=== PATIENT | male | born 1945 | race Caucasian/White ===

== ENCOUNTER 2019-08-17 20:07 | Observation (INO) | payer MEDICARE ==
[2019-08-17] MEDS ORDERED: cefTRIAXone\\ROCEPHIN 2 GM VIAL ONE (21:24)
[2019-08-17] MEDS ORDERED: Morphine 4 MG/ML VIAL ONE (21:24)
[2019-08-17 22:07] LABS: ALT (SGPT) 20 U/L (8-55); AST (SGOT) 20 U/L (5-34); Albumin 2.8 g/dL (3.4-4.8); Alkaline Phosphatase 239 U/L (40-110); Anion Gap 11 mmol/L (10-20); BUN (Urea Nitrogen) 18 mg/dL (8.4-25.7); Bilirubin, Total 0.7 mg/dL (0.2-1.2); Calc. Creatinine Clearance 0 mL/min (70-130); Calcium 8.4 mg/dL (7.8-10.44); Carbon Dioxide 19 mmol/L (23-31); Chloride 100 mmol/L (98-107); Estimated GFR-MDRD 86; Globulin 2.6 g/dL (2.4-3.5); Glucose 123 mg/dL (83-110); Potassium 3.9 mmol/L (3.5-5.1); Protein, Total 5.4 g/dL (5.8-8.1); Sodium 126 mmol/L (136-145)
--- NOTE | 2019-08-17 23:13 | CT ---
CT HEAD WITHOUT IV CONTRAST COMPARISON: None HISTORY: Altered mental status/stroke. Generalized weakness and hyponatremia. TECHNIQUE: Axial CT imaging at 5 mm intervals from vertex through skull base without contrast FINDINGS: A low-density area seen in the region of the pontomedullary junction. This is probably related to vol ume averaging, but infarction in this region cannot be excluded based on provided images. There is mild diminished attenuation in the periventricular white matter which is nonspecific but likely refle ctive of mild chronic small vessel ischemic changes. Small focal area of encephalomalacia is seen within the left anterior frontal lobe likely due to prior infarction. There is no evidence of an acut e infarction, hemorrhage, mass effect, or midline shift. Mild cerebral volume loss is present. The ventricular system is normal in size, shape, and position for the degree of sulcal atrophy. Visualized paranasal sinuses are clear. Osseous structures appear intact.There is atrophic right globe with associated calcification. IMPRESSION: 1. Low density area at the pontomedullary junction which could be artifactual. However, infarction ca nnot be entirely excluded based on this exam. Correlation with patient's neurological examination is recommended. Depending on clinical concern, follow-up CT head versus MRI brain is recommended. 2. Chronic findings as described above. 3. Above findings discussed Dr. Jackson in the emergency department on 08/17/2019 at 2310 hours
--- NOTE | 2019-08-18 01:23 | HP ---
PRIMARY CARE PHYSICIAN: Dr. Saucedo. CHIEF COMPLAINT: Generalized weakness. HISTORY OF PRESENT ILLNESS: Mr. Chong is a very pleasant 74-year-old gentleman, who has a history of systemic lupus and lupus arthritis. He says that over the past 2 to 3 weeks, he has been having progressively worse pain in his right shoulder. It got to the point where he could barely do anything with it. He made an appointment to see his primary care physician, Dr. Saucedo and over the week end before he could see Dr. Saucedo, he became weak and disoriented off and on according to the and he fell on Saturday and hit his elbow on the bathroom sink. She was able to break his fall, so that he did not hit with complete force. He has also noted a decrease in his appetite. He says nothing really tastes good. He has some cough and congestion, but no nausea, vomiting. No diarrhea. If anything, he has been a bit constipated. When he went in to see Dr. Saucedo, he suggested that he come in to the hospital for evaluation. He was treated initially at the [place] [facility], found to be hyponatremic and then sent here for further evaluation. REVIEW OF SYSTEMS: All systems were reviewed and are negative except for that mentioned in the history of present illness. 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 He has had this for 25 years. 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 ALLERGIES: TO SULFA. SOCIAL HISTORY: He is . He denies any alcohol use. He is a former smoker. He quit 35 years ago. He would like to be a full code. FAMILY HISTORY: Significant for arthritis. CURRENT MEDICATIONS: Include: 1. Mirtazapine 30 mg daily. 2. Methotrexate 20 mg weekly. 3. Folic acid 5 mg daily. 4. Dapsone 100 mg daily. 5. Rifampin 300 mg once a month. 6. Minocin 100 mg daily. 7. Tramadol 50 mg daily. PHYSICAL EXAMINATION: GENERAL: He is alert and oriented. He appears to be in no acute distress. He is well developed and well nourished, but chronically ill in appearance. VITAL SIGNS: Blood pressure was 121/60, heart rate 94, respiratory rate of 26, temperature is 99.5. HEENT: His pupils are reactive. He is missing the eye on the right. Throat, he has dry mucous membranes, some mild erythema. Poor dentition. NECK: There is no adenopathy. No bruits. LUNGS: Clear to auscultation. There is no wheezing, no rales, no rhonchi. CARDIOVASCULAR: He has a normal S1, S2. No S3 or S4. No murmurs, clicks, or rubs. ABDOMEN: Soft, nontender, and nondistended. Positive for bowel sounds. No rebound. No guarding. No organomegaly. EXTREMITIES: No calf tenderness. He does have some prepatellar swelling in the right knee, but there is no warmth. No erythema. His cranial nerves are intact. It is very difficult to assess his strength on the right side. He has good surgical aide strength in the right hand. However, he either is unable to or has decreased ability to lift his right arm against gravity. I do suspect this is somewhat due to pain in the shoulder. The shoulder has decreased movement in all planes, decreased abduction as well as adduction. On the right lower extremity, he was able to lift the leg against resistance, but with much coaxing on the skin and integument he has some hyperpigmentation of his skin as well as some purplish to grayish discoloration as well on the upper and lower extremities around the shoulders. LABORATORY DATA: His sodium was 126, potassium 3.9, chloride is 100, CO2 is 19, BUN of 18, creatinine 0.87, glucose is 123. Alkaline phosphatase was 239. He had a CBC, the white blood cell count was 9.6, hemoglobin 8.7, hematocrit is 28.1, and platelet count was 296. On his urinalysis, he had a positive nitrite, some rare bacteria. ASSESSMENT: This is a pleasant 74-year-old gentleman, who presents with generalized weakness and hyponatremia. He also has had frequent falls. He also notes difficulty in utilization of the right upper extremity. It is unclear whether or not this represents severe arthritis related to systemic lupus as evidenced by his x-ray. He may also have a rotator cuff tear, making it difficult to abduct the arm or it could be a stroke, which appears to be less likely. He is going to be admitted. PLAN: 1. He will be admitted. We will obtain an MRI of the brain as well as an MRI of the shoulder to help evaluate the right upper extremity weakness. 2. Hyponatremia. I suspect this is due to poor oral intake and volume depletion. We will continue IV hydration and recheck his level in the a.m. If his sodium is not correcting as expected then, a urine and serum osmolality can be obtained. 3. Systemic lupus. This appears to be clinically stable. 4. Urinary tract infection. We will continue Rocephin and follow up on the urine culture results. 5. We will also get PT and OT eval. Job ID: [id number]
[2019-08-18] MEDS ORDERED: hydrALAZINE 20 MG/ML VIAL SLOW IVP PRN (02:42)
[2019-08-18 03:56] LABS: Bilirubin Small (Negative); Blood, Urine Negative (Negative); Glucose, Urine (Dipstick) Negative (Negative); Leukocyte Negative (Negative); Nitrite Negative (Negative); Protein, Urine (Dipstick) 100 mg/dL (Neg-Trace)
[2019-08-18 04:00] LABS: Clarity Clear (Clear)
[2019-08-18 04:12] LABS: Bacteria/HPF None Seen HPF (None Seen); RBC/HPF 0-3 HPF (0-3); Squamous Epithelial 0-3 HPF (0-3); WBC/HPF 0-3 HPF (0-3)
[2019-08-18 04:16] LABS: Anion Gap 11 mmol/L (10-20); BUN (Urea Nitrogen) 16 mg/dL (8.4-25.7); Calc. Creatinine Clearance 0 mL/min (70-130); Carbon Dioxide 19 mmol/L (23-31); Chloride 101 mmol/L (98-107); Estimated GFR-MDRD Greater than 90; Glucose 118 mg/dL (83-110); Potassium 3.8 mmol/L (3.5-5.1); Sodium 127 mmol/L (136-145)
[2019-08-18] MEDS: Sodium Chloride 0.9% 1,000 ML IV SCH ×2 (04:50→16:31)
[2019-08-18 05:10] LABS: Band 4 % (5-11); Eosinophils 2 % (0-10); Hemoglobin 7.8 g/dL (14.0-18.0); Lymphocytes 2 % (21-51); MDiff Complete? YES; Mean Corpuscular HGB CONC 32.7 g/dL (32.0-36.0); Mean Corpuscular Hemoglobin 31.5 pg (27.0-31.0); Mean Corpuscular Volume 96.4 fL (78.0-98.0); Mean Platelet Volume 6.8 fL (7.4-10.4); Monocytes 14 % (0-10); Neutrophil 78 % (42-75); Platelet Count 280 thou/uL (130-400); RBC Distribution Width 16.2 % (11.5-14.5); Red Blood Cell (RBC) Count 2.48 mill/uL (4.70-6.10)
[2019-08-18] MEDS ORDERED: Enoxaparin Sodium 40 MG/0.4 ML SYRINGE ONE (09:21)
[2019-08-18] MEDS: Enoxaparin Sodium 40 MG/0.4 ML SYRINGE SC SCH (09:35)
--- NOTE | 2019-08-18 14:40 | MRI ---
EXAM: Right shoulder MRI without contrast: HISTORY: Right upper extremity weakness pain history of injury from a fall COMPARISON: None FINDINGS: Multiplanar, multisequence MRI examination of the shoulder is performed. A C joint:Very markedly severe A/C joint arthrosis with prominent downsloping of the anterior acromiu m as well as undersurface spurring of the lateral clavicle with some fluid and fat stranding in the subacromial and subdeltoid bursa. Supraspinatus tendon: Somewhat thinned supraspinatus tendon with minimal interstitial tearing and ten dinopathy. Infraspinatus tendon: Partial-thickness undersurface and minimal interstitial tearing and tendinopath y. Biceps tendon: Severe tendinopathy in the upper bicipital groove and intra-articularly with some inte rstitial tearing. Subscapularis tendon: Tendinopathy with interstitial tearing. Rotator cuff muscles: Rotator cuff muscles demonstrate some heterogeneous diffuse edematous changes w ith mild diffuse muscle volume loss. This could potentially represent some type of nonspecific denervation. Very markedly severe arthrosis changes of the glenohumeral joint with severe cartilage loss and exten sive subchondral cystic changes of the humeral head and glenoid with severe flattening and overall deformity. Severe humeral and glenoid hypertrophic osteophytosis. Glenoid labrum: Very severely blunted degenerated appearing labrum. No evidence for acute osteochondral defect or significant abnormal marrow signal. IMPRESSION: Very markedly severe glenohumeral joint arthropathy with marked cartilage loss and extensive subchond ral changes. Evidence for rotator cuff tendinopathy with some partial thickness and interstitial tearing. Rotator cuff muscle signal shows heterogeneous T2 hyperintensity evidence for some edematous changes, nonspecific, possibly related to nonspecific denervation. Severe A/C joint arthrosis. Other findings as above.
--- NOTE | 2019-08-18 14:46 | MRI ---
BRAIN MRI WITHOUT CONTRAST: 08/18/19 COMPARISON: None. HISTORY: Right upper extremity weakness, generalized weakness with hyponatremia, dehydration, and recent fall. TECHNIQUE: Multiplanar and multisequence MR imaging of the brain is obtained without contrast. FINDINGS: The diffusion weighted imaging demonstrates no evidence for acute infarction. The axial gradient echo imaging demonstrates no evidence for intracranial hemorrhage. The globe on th e right is shrunken and deformed suggesting a history of remote right sided ocular trauma. The regional bone marrow signal intensity appears grossly unremarkable. There is degenerative change involving the atlantoaxial interspace. There are numerous scattered foci of increased T2 and FLAIR si gnal within the periventricular, deep, and subcortical white matter, evidence of small vessel disease . There is mild cerebral volume loss. IMPRESSION: Small vessel disease. No MR evidence of intracranial hemorrhage, or acute infarction. POS: BEE
[2019-08-18] MEDS: Acetaminophen 325 MG TAB PO PRN (16:31)
[2019-08-18 16:55] VITALS: BMI 24.3
[2019-08-18] MEDS: Minocycline HCl 50 MG CAP PO SCH (20:48)
[2019-08-18] MEDS: Cyclobenzaprine 10 MG TAB PO SCH (20:48)
[2019-08-18] MEDS: Hydroxychloroquine Sulfate 200 MG TAB PO SCH (20:49)
[2019-08-18] MEDS ORDERED: Methotrexate Sodium 2.5 MG TAB PO SCH (21:00)
[2019-08-18] MEDS ORDERED: cefTRIAXone\\ROCEPHIN 1 GM in Sodium Chloride 0.9% 100 ML IVPB SCH (21:00)
--- NOTE | 2019-08-18 21:40 | PDOC.HOSPP ---
- Subjective Encounter Date: 08/18/19 Encounter Time: 16:00 Subjective: no overnight events. This morning, complains of weakness but mostly of right shoulder pain and limited movement due to pain. - Objective Vital Signs & Weight: Vital Signs (12 hours) Temp Pulse Pulse Pulse Resp BP BP 08/18/19 19:07 98.2 F 89 18 08/18/19 15:40 85 85 124/70 122/65 08/18/19 14:55 100.4 F H 87 16 BP Pulse Ox 08/18/19 19:07 108/67 99 08/18/19 15:40 08/18/19 14:55 111/69 97 Weight Weight 179 lb 7.3 oz I&O: 08/17/19 08/18/19 08/19/19 06:59 06:59 06:59 Intake Total 999 Output Total 200 Balance 799 Result Diagrams: 08/18/19 03:36 08/18/19 03:36 Hospitalist ROS - Review of Systems Constitutional: denies: fever, chills, sweats, weakness, malaise, other Respiratory: denies: cough, dry, shortness of breath, hemoptysis, SOB with excertion, pleuritic pain, sputum, wheezing, other Cardiovascular: denies: chest pain, palpitations, orthopnea, paroxysmal noc. dyspnea, edema, light headedness, other Genitourinary: denies: dysuria, frequency, incontinence, hematuria, retention, other Musculoskeletal: reports: shoulder pain Skin: reports: bruising Neurological: reports: weakness, incoordination - Medication Medications: Active Medications Generic Name Dose Route Start Last Admin Trade Name Elíasq PRN Reason Stop Dose Admin Acetaminophen 650 mg 08/18/19 02:42 08/18/19 16:31 Tylenol PO 650 mg Q4H PRN Administration Headache/Fever/Mild Pain (1-3) Cyclobenzaprine HCl 10 mg 08/18/19 21:00 08/18/19 20:48 Flexeril PO 10 mg TID HENRY Administration Dapsone 100 mg 08/18/19 21:00 08/18/19 20:49 Dapsone PO 100 mg HS HENRY Administration Enoxaparin Sodium 40 mg 08/18/19 09:00 08/18/19 09:35 Lovenox SC 40 mg 0900 HENRY Administration Hydroxychloroquine Sulfate 200 mg 08/18/19 21:00 08/18/19 20:49 Plaquenil PO 200 mg BID HENRY Administration Sodium Chloride 1,000 mls @ 75 mls/hr 08/18/19 03:00 08/18/19 16:31 Normal Saline 0.9% IV 1,000 mls .[id number] HENRY Administration Minocycline HCl 100 mg 08/18/19 21:00 08/18/19 20:48 Minocycline Hcl PO 100 mg HS HENRY Administration - Exam General Appearance: NAD, awake alert ENT: normocephalic atraumatic Neck: no JVD Heart: RRR, no murmur, no gallops, no rubs Respiratory: CTAB, no wheezes, no rales, no ronchi Gastrointestinal: soft, non-tender, non-distended, normal bowel sounds Extremities: no edema Extremities - other findings: right shoulder adducted, passive movement limited by severe pain Psychiatric: normal affect, normal behavior, A&O x 3 Hosp A/P - Plan -Left shoulder pain likely worsening osteoarthritis exacerbated by recent fall #weakness -MRI brain showing now acute infarct -likely result of radiculopathy and deconditioning #chronic hyponatremia -endorses reduced oral intake for the past year or so, worse in past two weeks -will provide IVF -may also be reset osmostat #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
[2019-08-18] MEDS ORDERED: traMADol HCl 50 MG TAB PO PRN (21:45)
[2019-08-19] MEDS: Sodium Chloride 0.9% 1,000 ML IV SCH (05:58)
[2019-08-19 06:53] LABS: Anion Gap 10 mmol/L (10-20); BUN (Urea Nitrogen) 10 mg/dL (8.4-25.7); Calc. Creatinine Clearance 102 mL/min (70-130); Calcium 7.8 mg/dL (7.8-10.44); Carbon Dioxide 17 mmol/L (23-31); Chloride 102 mmol/L (98-107); Estimated GFR-MDRD Greater than 90; Glucose 108 mg/dL (83-110); Potassium 3.9 mmol/L (3.5-5.1); Sodium 125 mmol/L (136-145)
[2019-08-19] MEDS: Cyclobenzaprine 10 MG TAB PO SCH ×3 (08:46→20:49)
[2019-08-19] MEDS: Enoxaparin Sodium 40 MG/0.4 ML SYRINGE SC SCH (08:47)
[2019-08-19] MEDS: Mirtazapine 30 MG TAB PO SCH (08:47)
[2019-08-19] MEDS: Folic Acid 1 MG TAB PO SCH (08:48)
[2019-08-19] MEDS: Hydroxychloroquine Sulfate 200 MG TAB PO SCH ×2 (08:48→20:49)
[2019-08-19 10:50] LABS: Sodium 128 mmol/L (136-145)
[2019-08-19] MEDS: Acetaminophen 325 MG TAB PO PRN ×2 (13:16→20:56)
--- NOTE | 2019-08-19 14:11 | CON ---
DATE OF CONSULTATION: 08/19/2019 This is Audrey Henry PA-C dictating a report for Carlos Oliveira MD. REQUESTING PHYSICIAN: [facility]. CONSULTING PHYSICIAN: Carlos Oliveira MD HISTORY OF PRESENT ILLNESS: This is a pleasant 74-year-old gentleman with a history of lupus. He reports that over the last 2 to 3 weeks he has been having progressively worse pain in his right shoulder, but before he could get to a doctor, he started having some weakness and disorientation. He did fall at home, but was caught by his . He then presented to his primary care doctor and was referred to our emergency department. He has been admitted now for hyponatremia. Currently at bedside, the patient reports that his biggest complaint is his right shoulder pain. He is also very weak. Family reports that the workup for stroke was negative. The patient does state that he attends aquatic therapy twice a week and started using some underwater weights approximately 2 weeks ago. He believes this is when his shoulder started bothering him. The patient does state he has been seen for the shoulder in the past, but it was many years ago by Dr. Otto. He denies any recent fevers, chills, or infection. He is right-hand dominant. He is a former rancher. PAST MEDICAL HISTORY: Significant for leprosy and lupus. PAST SURGICAL HISTORY: Includes a finger amputation secondary to a bone infection, eye surgery. ALLERGIES: INCLUDE SULFA. SOCIAL HISTORY: He is . He is a former smoker that quit 35 years ago. He denies any alcohol use. He is retired and lives at home with his . FAMILY HISTORY: Reviewed and noncontributory. REVIEW OF SYSTEMS: Ten-point review of systems conducted and otherwise negative except for stated above. OBJECTIVE: VITAL SIGNS: Temperature 98.4, pulse of 85, respiratory rate of 16, O2 saturation of 97% on room air, and blood pressure of 127/66. GENERAL: The patient is awake and alert. He is sitting up in bed, conversing with family and friends at bedside. He is in no apparent distress. He answers all questions appropriately. HEENT: Head is normocephalic and atraumatic. Eyes, the right eye is absent. NECK: Supple. Trachea midline. Breathing nonlabored. EXTREMITIES: The right upper extremity was evaluated. The patient is unable to lift his arm whatsoever off the bed secondary to shoulder pain. He is able to move all his digits. Distal neurovascular status is intact. He does have motion of the wrist and the elbow. Palpation over the shoulder shows that he is point tender over the AC joint, and there is also tenderness over the anterior shoulder at the level of the glenohumeral joint. These areas are exquisitely tender to palpation. There is no erythema and no significant swelling noted. RADIOGRAPHIC IMAGING: Reviewed today including x-rays of the right shoulder, which demonstrate severe [id number] osteoarthritis of the glenohumeral joint with bone spur formation present. There is also osteoarthrosis of the AC joint. No acute fractures. MRI evaluation shows interstitial tearing of the supraspinatus, but severe glenohumeral joint osteoarthritis and arthrosis of the AC joint. ASSESSMENT: Severe glenohumeral joint osteoarthritis. PLAN: At this time, care will be supportive. I will order a sling for him for comfort. He does not need to wear this while he is in bed, but he can wear while he is up and moving around. He did say that he is using a walker to get around, so this might not be something that he can use immediately, this might be something that he has to wait until he can ambulate better before he is in a sling. He can take ibuprofen or Aleve as needed if this is okay with the Medicine Service. He would be a good candidate for a total shoulder replacement or possibly even reverse total shoulder replacement depending on the integrity of his rotator cuff. The patient has seen Dr. Otto in the past for his shoulder. I will provide a phone number and followup information in his discharge packet. No surgical intervention anticipated at this time. Job ID: [id number]
[2019-08-19 14:36] LABS: Anion Gap 10 mmol/L (10-20); BUN (Urea Nitrogen) 11 mg/dL (8.4-25.7); Calc. Creatinine Clearance 98 mL/min (70-130); Calcium 7.7 mg/dL (7.8-10.44); Carbon Dioxide 21 mmol/L (23-31); Chloride 100 mmol/L (98-107); Estimated GFR-MDRD Greater than 90; Glucose 127 mg/dL (83-110); Potassium 4.1 mmol/L (3.5-5.1); Sodium 127 mmol/L (136-145)
--- NOTE | 2019-08-19 20:45 | PDOC.HOSPP ---
- Subjective Encounter Date: 08/19/19 Encounter Time: 10:00 Subjective: no overnight events. This morning, complains of continued pain in his right shoulder and inability to move due to pain. Has no other complaints. - Objective Vital Signs & Weight: Vital Signs (12 hours) Temp Pulse Pulse Pulse Resp BP BP 08/19/19 20:00 98.2 F 80 22 H 08/19/19 15:26 97.7 F 74 16 08/19/19 11:18 127/66 08/19/19 09:45 08/19/19 09:31 106 H 85 113/64 128/78 BP BP BP Pulse Ox 08/19/19 20:00 137/71 92 L 08/19/19 15:26 119/62 96 08/19/19 11:18 08/19/19 09:45 130/76 103/64 128/78 08/19/19 09:31 Weight Admit Weight 179 lb 8 oz Weight 179 lb I&O: 08/18/19 08/19/19 08/20/19 06:59 06:59 06:59 Intake Total 1899 497 Output Total 200 1070 Balance 1699 -573 Result Diagrams: 08/18/19 03:36 08/19/19 14:03 Hospitalist ROS - Review of Systems Constitutional: denies: fever, chills, sweats, weakness, malaise, other Respiratory: denies: cough, dry, shortness of breath, hemoptysis, SOB with excertion, pleuritic pain, sputum, wheezing, other Cardiovascular: denies: chest pain, palpitations, orthopnea, paroxysmal noc. dyspnea, edema, light headedness, other Gastrointestinal: denies: nausea, vomiting, abdominal pain, diarrhea, constipation, melena, hematochezia, other Genitourinary: denies: dysuria, frequency, incontinence, hematuria, retention, other Musculoskeletal: reports: shoulder pain Neurological: denies: weakness, numbness - Medication Medications: Active Medications Generic Name Dose Route Start Last Admin Trade Name Freq PRN Reason Stop Dose Admin Acetaminophen 650 mg 08/18/19 02:42 08/19/19 13:16 Tylenol PO 650 mg Q4H PRN Administration Headache/Fever/Mild Pain (1-3) Cyclobenzaprine HCl 10 mg 08/18/19 21:00 08/19/19 14:34 Flexeril PO Not Given TID HENRY Dapsone 100 mg 08/18/19 21:00 08/18/19 20:49 Dapsone PO 100 mg HS HENRY Administration Enoxaparin Sodium 40 mg 08/18/19 09:00 08/19/19 08:47 Lovenox SC 40 mg 0900 HENRY Administration Folic Acid 1 mg 08/19/19 09:00 08/19/19 08:48 Folvite PO 1 mg DAILY HENRY Administration Hydroxychloroquine Sulfate 200 mg 08/18/19 21:00 08/19/19 08:48 Plaquenil PO 200 mg BID HENRY Administration Methotrexate Sodium 20 mg 08/18/19 21:00 08/18/19 22:46 Methotrexate Sodium PO Not Given Tu@2100 HENRY Minocycline HCl 100 mg 08/18/19 21:00 08/18/19 20:48 Minocycline Hcl PO 100 mg HS HENRY Administration Mirtazapine 30 mg 08/19/19 09:00 08/19/19 08:47 Remeron PO 30 mg DAILY HENRY Administration - Exam General Appearance: NAD, awake alert Neck: no JVD Heart: RRR, no murmur, no gallops, no rubs, normal peripheral pulses Respiratory: CTAB, no wheezes, no rales, no ronchi, normal chest expansion Gastrointestinal: soft, non-tender, non-distended, normal bowel sounds Extremities: no edema Skin - other findings: right shoulder adducted. 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
[2019-08-19] MEDS: Minocycline HCl 50 MG CAP PO SCH (20:49)
[2019-08-20 05:45] LABS: Sodium 127 mmol/L (136-145)
[2019-08-20] MEDS ORDERED: methylPREDNISolone Acetate 40 mg/ml Vial IM SCH (07:15)
[2019-08-20] MEDS ORDERED: Lidocaine 1% (PF) 30 ML VIAL SC SCH (07:30)
[2019-08-20] MEDS: Folic Acid 1 MG TAB PO SCH (08:54)
[2019-08-20] MEDS: Hydroxychloroquine Sulfate 200 MG TAB PO SCH (08:54)
[2019-08-20] MEDS: Cyclobenzaprine 10 MG TAB PO SCH ×2 (08:54→14:59)
[2019-08-20] MEDS: Enoxaparin Sodium 40 MG/0.4 ML SYRINGE SC SCH (08:54)
[2019-08-20] MEDS: Mirtazapine 30 MG TAB PO SCH (08:54)
[2019-08-20] MEDS: Acetaminophen 325 MG TAB PO PRN (09:00)
[2019-08-20 11:17] VITALS: BP 119/61; TEMP 98
--- NOTE | 2019-08-21 15:21 | DIS ---
DATE OF ADMISSION: 08/17/2019 DATE OF DISCHARGE: 08/20/2019 Mr. Chong is a 74-year-old male with medical history of SLE and lepromatous leprosy, who presented for progressively worsening pain in the right shoulder. He was diagnosed with severe right shoulder osteoarthritis and tendinopathy based on an MRI. Orthopedics were consulted and the patient was prescribed with a sling and recommended that he take ibuprofen or Aleve as needed for pain management. Per Orthopedic Surgery, he would be a good candidate for total shoulder replacement and scheduling for an outpatient appointment with Orthopedics Surgery. He was discharged to rehab facility, hemodynamically stable and with no complaints except for his right shoulder pain, with followup appointment with his primary care physician and Orthopedic Surgery. Job ID: [id number]
--- NOTE | 2019-08-25 10:23 | PRG ---
DATE OF SERVICE: 08/20/2019 SUBJECTIVE: We took Carlitos on consult yesterday for evaluation of right shoulder pain secondary to severe osteoarthritis of the glenohumeral joint. We have been asked also consider an injection for supportive care to help him get around and mobilize. OBJECTIVE: EXTREMITIES: Right shoulder demonstrates significant stiffness with provocative concordant pain with attempts at motion, both actively and passively. He is very stiff. Overall, he is very cachectic and appears to have some muscular wasting diffusely. IMPRESSION: Severe end-stage glenohumeral osteoarthritis of right shoulder. PLAN: Intra-articular corticosteroid injection. The arthrocentesis will be performed. Please see procedure note. Job ID: [id number]
--- NOTE | 2019-08-25 10:42 | OP ---
DATE OF PROCEDURE: 08/20/2019 PREPROCEDURE DIAGNOSIS: End-stage bicompartmental glenohumeral osteoarthritis of right shoulder. POSTOPERATIVE DIAGNOSIS: End-stage bicompartmental glenohumeral osteoarthritis of right shoulder. PROCEDURE PERFORMED: Arthrocentesis, glenohumeral joint, right shoulder using posterior approach. CHIEF ORTHOPTIST: Madi Abernathy PA-C ANESTHESIA: 1% Xylocaine without epinephrine. FINDINGS: Severe glenohumeral osteoarthritis noted on MRI. DESCRIPTION OF PROCEDURE: After informed consent was obtained, preoperative time-out was called, and all members agreed upon parameters. After this was completed, the patient was positioned in the sitting up position. The right shoulder was approached, prepped and draped in the usual sterile fashion. 1% Xylocaine was used for anesthesia. After this, a 22-gauge needle was introduced with a mixture of 80 mg of Depo-Medrol and 10 mL of lidocaine was injected using a posterior approach into the glenohumeral joint without any resistance. Needle was withdrawn. The procedure terminated without complication. A sterile dressing was applied and the patient tolerated without any complication. We will see him back in clinic for re-examination. Job ID: [id number]
== END 2019-08-20 19:07 ==
LOC: ERS 20:07 → INTOOBSV 22:29 → ERHOLD 22:29 → 2SE 08-18 15:11
PROVIDERS: ADMIT Internal Medicine; ATTEND Internal Medicine
PROC: 3E0U33Z Introduction of Anti-inflammatory into Joints, Percutaneous Approach (ICD-10-PCS; principal; 2019-08-17)
DX: M19.011 Primary osteoarthritis, right shoulder (principal); A30 Leprosy [Hansen's disease]; M32.9 Systemic lupus erythematosus, unspecified; E87.1 Hypo-osmolality and hyponatremia; N39.0 Urinary tract infection, site not specified; Z79.899 Other long term (current) drug therapy; Z88.2 Allergy status to sulfonamides; Z87.891 Personal history of nicotine dependence
CPT/HCPCS: 20610; 70450; 70551; 73221; 80048 ×3; 80053; 81003; 82533; 83935; 84295 ×2; 84300; 84443; 85025; 87086; 96365; 96372 ×3; 96375; 97116 ×3; 97139 ×4; 97530 ×2; 97535 ×2; 99285; G0378 ×4; 36415; J0696; J1030; J1650; J2001; J2270